=== PATIENT | male | born 1950 | race Caucasian/White ===

== ENCOUNTER 2022-05-01 06:44 | Day surgery (SDC) | payer MEDICARE, BC ==
[2022-04-26 11:43] LABS: BASOPHILS % (AUTO) 0.4 % (0-1); EOSINOPHILS # (AUTO) 0.1 X10'3 (0-0.9); EOSINOPHILS % (AUTO) 2.1 % (0-6); LYMPHOCYTES # (AUTO) 1.1 X10'3 (1.1-4.8); LYMPHOCYTES % (AUTO) 42.6 % (21-51); MEAN CORPUSCULAR HGB CONC 35.4 g/dL (33.0-36.5); MEAN CORPUSCULAR VOLUME 87.8 FL (78-98); MEAN PLATELET VOLUME 8.3 FL (7.4-10.4); MONOCYTES # (AUTO) 0.3 X10'3 (0-0.9); MONOCYTES % (AUTO) 10.2 % (2-12); NEUTROPHILS # (AUTO) 1.1 X10'3 (1.8-7.7); NEUTROPHILS % (AUTO) 44.7 % (42-75); PRE OP HEMATOCRIT 40.8 % (42.0-52.0); PRE OP HEMOGLOBIN 14.4 g/dL (14.0-17.9); PRE OP PLATELET COUNT 110 X10'3 (140-440); RED BLOOD COUNT 4.65 X10'6 (4.70-6.10); RED CELL DISTRIBUTION WIDTH 13.6 % (11.5-14.5)
[2022-04-26 11:45] LABS: CLARITY,URINE CLEAR (Clear); COLOR,URINE YELLOW (Yellow); GLUCOSE, URINE NEGATIVE (Neg); KETONES,URINE NEGATIVE (Neg); LEUKOCYTE ESTERASE ,URINE NEGATIVE (Neg); NITRITES, URINE NEGATIVE (Neg); OCCULT BLOOD,URINE MODERATE (Neg); PH,URINE 6.5 (4.8-8.0); PROTEIN,URINE NEGATIVE (Neg); UROBILINOGEN,URINE 0.2 E.U/dL (0.2-1.0)
[2022-04-26 11:46] LABS: UA COLLECTION TYPE NON-SPECIFIED
[2022-04-26 11:54] LABS: BACTERIA,URINE FEW /HPF (Neg); SQUAMOUS EPITHELIAL CELL,UR FEW /LPF (FEW); WBC,URINE 0-4 /HPF (0-4)
[2022-04-26 11:59] LABS: ALBUMIN 3.8 G/DL (3.4-5.0); ALBUMIN/GLOBULIN RATIO 1.3 (1.1-1.5); ALKALINE PHOSPHATASE 91 IU/L (46-116); BLOOD UREA NITROGEN 9 MG/DL (7-18); BUN/CREATININE RATIO 10.1 (5.4-32.0); CALCIUM 8.7 MG/DL (8.5-10.1); CHLORIDE 105 MMOL/L (99-107); CREATININE 0.89 MG/DL (0.60-1.10); PRE OP ALT 45 U/L (30-65); PRE OP ANION GAP 7 (8-16); PRE OP AST 27 U/L (10-37); PRE OP BILIRUB, TOTAL 0.5 MG/DL (0.0-1.0); PRE OP GLUCOSE 92 MG/DL (70-104); PRE OP SODIUM 142 MMOL/L (135-145); TOTAL CARBON DIOXIDE 29.6 MMOL/L (24-32); TOTAL PROTEIN 6.8 G/DL (6.4-8.2); eGFR 85 ML/MIN
[2022-04-26 13:59] LABS: PLATELET ESTIMATE DECREASED; TOTAL CELLS COUNTED 100
[2022-05-01] VITALS (10 sets, daily range): BP systolic 99–152; BP diastolic 55–94
[~2022-05-01] VITALS: Ht 185.4 cm; Wt 80.4 kg
[~2022-05-01 06:44] MED LIST: IBUP-1984 PO; PANT40TA54 PO; cefazolin 2gm/D5W 100mL 100 ML IV ONE; famotidine 20mg tablet PO ONE; ringers solution, lacted 1,000 ML IV SCH
[2022-05-01] MEDS ORDERED: BUPIVAcaine 0.5% inj/PF 30 ML ONE (07:21)
[2022-05-01] MEDS ORDERED: rocuronium 10mg/ml inj IV ONE (09:11)
[2022-05-01] MEDS ORDERED: fentaNYL /PF 50mcg/ml 5ml ampule ONE (09:11)
[2022-05-01] MEDS ORDERED: midazolam 1 mg/ML 2ml injection ONE (09:11)
[2022-05-01] MEDS ORDERED: propofol inj 20 ML IV ONE (09:11)
[2022-05-01] MEDS ORDERED: ePHEDrine 50MG/ML INJ. ONE (09:12)
[2022-05-01] MEDS ORDERED: sevoflurane 250ml liquid IH ONE (09:12)
[2022-05-01] MEDS ORDERED: BUPIVAcaine 0.5% inj/PF 30 ml vial IJ ONE (10:00)
[2022-05-01] MEDS ORDERED: meperidine/PF 25mg/ml syringe IV PRN ×3 (10:15)
[2022-05-01] MEDS ORDERED: ondansetron/PF 4mg/2ml inj IV PRN (10:15)
[2022-05-01] MEDS ORDERED: proCHLORperazine 10 MG/2 ml inj IV PRN (10:15)
[2022-05-01] MEDS ORDERED: morphine 4 MG/ML inj SYRINge IV PRN (10:15)
[2022-05-01] MEDS ORDERED: morphine 2 MG/ML inj. syringe IV PRN (10:15)
[2022-05-01] MEDS ORDERED: ringers solution, lacted 1,000 ML IV SCH (10:15)
[2022-05-01] MEDS ORDERED: dexamethasone sod phosphate 4mg/ml inj. ONE (10:45)
[2022-05-01] MEDS ORDERED: ondansetron/PF 4mg/2ml inj ONE (10:46)
[2022-05-01] MEDS ORDERED: sugammadex 200mg/2ml injection IV ONE (10:47)
--- NOTE | 2022-05-01 11:06 | NUR ---
Received from OR via [facility], accompanied by Anesthesiologist DR BENOIT and report given by Anesthesiologist. PT IS GROGGY BUT RESPONDS TO VERBAL STIMULI AND FOLLOWS COMMANDS. PT PLACED ON BEDSIDE MONITOR, VSS. PT IS IN SR WITH RATE IN HIGH 60'S. PT RECEIVING 8L O2 TO MASK AND TOLERATING WELL WITH O2 SAT >95%. PT HAS 20G PIV TO RT AC WITH LR INFUSING ORDERED. PT HAS 3 LAP SITES TO ABD THAT ARE CDI, DERMABOND IN PLACE AND NO BANDAGE. PT DENIES PAIN AT THIS TIME. WILL CONTINUE TO ASSESS.
--- NOTE | 2022-05-01 12:09 | NUR ---
PT OFF MONITOR TO ATTEMPT VOID
[2022-05-01] MEDS ORDERED: HYDROcodone/acetaminophen 10/325mg tab PO ONE (12:56)
--- NOTE | 2022-05-01 13:30 | NUR ---
ABLE TO SAFELY AMBULATE AND TRANSFER SELF. PT IS VOIDING, 225ML OF URINE VOIDED. IV TAKEN OUT WITHOUT ANY COMPLICATIONS. ALL DISCHARGE INSTRUCTIONS COVERED WITH PATIENT AND ALL QUESTIONS ANSWERED. PATIENT TAKEN OUT VIA WHEELCHAIR TO PERSONAL VEHICLE WHERE FAMILY/FRIEND DROVE PATIENT HOME.
== END 2022-05-01 13:22 | disposition home or self-care (01) ==
LOC: PAS 06:44
PROVIDERS: ATTEND Surgery
DX: K40.91 Unilateral inguinal hernia, without obstruction or gangrene, recurrent (principal); K40.90 Unilateral inguinal hernia, without obstruction or gangrene, not specified as recurrent; K43.6 Other and unspecified ventral hernia with obstruction, without gangrene; K66.0 Peritoneal adhesions (postprocedural) (postinfection); K21.9 Gastro-esophageal reflux disease without esophagitis; Z98.890 Other specified postprocedural states; Z79.899 Other long term (current) drug therapy; Z87.891 Personal history of nicotine dependence; Z82.61 Family history of arthritis
CPT/HCPCS: 49592; 49650; 49651; 80053; 81001; 82948; 85025; 93005; C1758; C1781; J0690; J1100; J2250; J2405; J2704; J3010; J3490; J7030; J7120; S0020; Z7506; Z7508; Z7512; 85007; A4215; A4618